=== PATIENT | female | born 1980 ===

== ENCOUNTER 2018-01-29 21:33 | Inpatient (IN) | payer MEDICAID, SELFPAY ==
[2018-01-29 22:15] VITALS: BMI 22.6
--- NOTE | 2018-01-29 23:29 | OBADHP ---
Datetime: 01/29/2018 23:28 FHR - Baseline A Provider: 140 NICHD Variability Prov Fetus A: Moderate 6-25bpm Dilatation, Provider: 1-2 Effacement, Provider: thick Station, Provider: long Datetime: 01/29/2018 22:17 Admit Comment, IP Provider: CC: IOL for AMA HPI: 37 YO @ 39.5wks IUP presents to L_D for IOL. Pt states the has been going w ell thus far, no complications. Endorsing good FM, no VB, no LOF and occasional ctx. MD: [facility] OBHx: 2x NVD (2010 and 2012) 1 SAB PMH: denies SurgH: L ovarian cyst removal 2014 FH: denies SH: denies smoking, ETOH, illict drug use Allergies: NKDA Meds: PNV PE: Gen: NAD Cardio: S1S2 no additional heart sounds Resp: clear breath sounds b/l Abdomen: gravid, NT, BS+ Neuro: AAO x 3 Ext: NT, no edema noted FM: 140, Catagory I Bedside U/S: Vertex Cervx: 1-2/thick/long A/P: 37 YO @ 39.5wks IUP is admitted for IOL. GBS neg, HIV neg, RPR neg, Heb B neg, rubell a immune. -Admit pt to L_D -start IOL protocol -blood work -continue FM Margarita Ornelas, PGY I OB Hospitalist note: Pt seen. She was sent by Dr Delilah Miller ([facility]) for IO L Agree with PGY1 note ROBB Discussed IOL, pain management, labor/delivery and Pelvic Type - PN: Adequate Extremities - PN: Normal Abdomen - PN: Normal Back - PN: Not Done Breast - PN: Normal Lungs - PN: Normal Heart - PN: Normal Thyroid - PN: Not Done Neurologic - PN: Normal HEENT - PN: Normal General - PN: Normal Presentation-Admit: Vertex Membranes, Provider: Intact IP Hx Assessment: The History has been Reviewed and is Current Vital Signs Provider: Reviewed; Within Normal Limits IP Chief Complaint: Scheduled induction of labor NICHD Accel Fetus A IP Provider: [id number] FHR Category Provider Fetus A: Category I NICHD Decel Fetus A IP Provider: None Genitourinary Exam: Normal DTRs - PN: Not Done IP Adm Impression: Term, intrauterine ; No Active Labor; Intact Membranes IP Admit Plan: Admit to unit; Initiate labor protocol; Initiate labor induction protocol
[2018-01-29 23:48] LABS: BASO % 0.3 % (0.0-2.0); EOS % 0.2 % (0.0-4.0); HEMOGLOBIN 10.5 g/dL (12.0-16.0); LYMPH # 1.5 K/uL (1.0-4.3); LYMPH % 20.3 % (20.0-40.0); MEAN CELL VOLUME 88.7 fl (81.0-99.0); MEAN CORPUSCULAR HGB CONC 32.7 g/dL (33.0-37.0); MEAN PLATELET VOLUME 9.9 fl (7.2-11.7); MONO # 0.6 K/uL (0.0-0.8); MONO % 7.9 % (0.0-10.0); NEUT # 5.2 K/uL (1.8-7.0); NEUT % 71.3 % (50.0-75.0); RBC 3.62 Mil/uL (3.80-5.20); RED CELL DISTRIBUTION WIDTH 15.1 % (11.5-14.5); WHITE BLOOD COUNT 7.3 K/uL (4.8-10.8)
[2018-01-30] MEDS: Lactated Ringer's 1,000 ML IV SCH ×5 (00:30→08:59)
[2018-01-30] MEDS ORDERED: Fentanyl/Bupivacaine HCl 250 ML EPI ONE (00:55)
[2018-01-30] MEDS ORDERED: Oxytocin 30 units/LR 500ML 30 U/500 ML BAG IV ONE ×2 (04:27→09:03)
[2018-01-30] MEDS ORDERED: Lidocaine 2% Inj (20ml) ONE (07:28)
--- NOTE | 2018-01-30 07:35 | OBPN ---
Datetime: 01/30/2018 06:40 IP Progress Plan Other: Pitocin at 1miu/h IP Progress Impression Other: Second stage of labor IP Progress Impression: Normal progression of labor IP Informed Consent Obtain: Vaginal Delivery; Risks, Benefits and Alternatives Discussed IP Progress Plan: Continue present management; Augmentation Membranes, Provider: Ruptured FHR - Baseline A Provider: 130 Presentation-Admit: Vertex NICHD Accel Fetus A IP Provider: [id number] FHR Category Provider Fetus A: Category I NICHD Variability Prov Fetus A: Moderate 6-25bpm Dilatation, Provider: 10 Effacement, Provider: 100 Station, Provider: 0 NICHD Decel Fetus A IP Provider: None Datetime: 01/30/2018 04:29 IP Progress Note Comment: 37 YO @ 39.5wks IUP is admitted for IOL. Pt has irregular ctx pattern on monitor. Cervx: 2 Will start pitocin continue to monitor labor progression. Margarita Ornelas, PGY I Case was dicussed with PGY1 - agree with note MAHNDO Datetime: 01/30/2018 00:20 IP Procedures Other: Cervidil removed Datetime: 01/29/2018 23:28 Vital Signs Provider: Reviewed; Within Normal Limits
[2018-01-30] MEDS ORDERED: Oxycodone/Acetaminophen 5/325 mg Tab PO PRN ×4 (08:24→12:52)
[2018-01-30] MEDS ORDERED: Benzocaine/Menthol SPRAY TOP PRN (18:50)
[2018-01-31 07:18] LABS: BASO % 0.3 % (0.0-2.0); EOS % 0.5 % (0.0-4.0); HEMOGLOBIN 7.7 g/dL (12.0-16.0); LYMPH # 1.8 K/uL (1.0-4.3); LYMPH % 21.2 % (20.0-40.0); MEAN CELL VOLUME 88.9 fl (81.0-99.0); MEAN CORPUSCULAR HEMOGLOBIN 29.6 pg (27.0-31.0); MEAN CORPUSCULAR HGB CONC 33.2 g/dL (33.0-37.0); MEAN PLATELET VOLUME 9.2 fl (7.2-11.7); MONO # 0.6 K/uL (0.0-0.8); MONO % 6.9 % (0.0-10.0); NEUT # 5.9 K/uL (1.8-7.0); NEUT % 71.1 % (50.0-75.0); RBC 2.62 Mil/uL (3.80-5.20); RED CELL DISTRIBUTION WIDTH 15.4 % (11.5-14.5); WHITE BLOOD COUNT 8.3 K/uL (4.8-10.8)
--- NOTE | 2018-01-31 14:59 | OBPPN ---
Datetime: 01/31/2018 05:46 PP Pain Prov: Within normal limits PP Nausea Prov: Denies PP Flatus Prov: Yes PP BM Prov: Yes PP Breasts Prov: Normal PP Heart Prov: Normal PP Lungs Prov: Normal PP Abdomen/Uterus Prov: Normal PP Lochia Prov: Normal PP Vulva/Perineum Prov: Normal PP CVA Tenderness Prov: Not Done PP Extremities Prov: Normal PP C/S Incision Prov: Not Applicable PP Progress Prov: Not Applicable PP Impression Prov: Normal progression PP Plan Prov: Continue present management PP Progress Note Prov: S: 37 YO PPD1, s/p NVD. Pt is seen and examined by bedside this AM. No a cute overnight events. Pt is endorsing mild abdominal pain, but well controlled with pain meds. Has a mbulated to the bathroom without assistance. Bleeding has improved since delivery, like menses now. T olerating PO diet. + BM/+flatus. Denies chest pain, dyspnea, n/v, fever/chills, diarrhea, nausea/vomi ting, and calf pain. Does not desire circumcision for baby. O: VS: wnl, afebrile GEN: Awake, alert and baby by bedside HEENT: EOMI, moist mucosa. LUNGS: CTA B/L, no wheezing, rhonci, or rales CVS: RRR, S1, S2 no murmurs ABD: ND, +BS, soft abdomen, firm fundus, below umbilicus. EXT: No edema, neg calf tenderness NEURO/PSYCHI: AAOx3, no grossly focal deficit, preserved affect and mood. Assessment/Plan: 37 YO PPD1, s/p NVD on 01/30/18, gave to a baby boy. Pt remains afebril e, tolerating pain with medication, good PO intake and urinating without any difficulties. Doing well on PPD1. -C/w regular diet as tolerated. -OOB with caution SCDs for DVT prophylaxis -Ibuprofen 600 mg for pain prn -C/w Colace 100mg PO BID -Encourage and early ambulation. Margarita Ceci, PGY I Vital Signs Provider PP: Reviewed; Within Normal Limits
--- NOTE | 2018-02-01 08:17 | OBDCSUM ---
Datetime: 02/01/2018 06:21 Discharged to, Provider: Home Follow up at, Provider: [facility] Disch Instr Activity: Normal activity; May be up to bathroom; May be up for meals; May Shower Disch Instr Diet: Regular Discharge Instructions, Provider: Routine instructions given Discharge Diagnosis, Provider: Term Delivered Discharge Time: 02/01/2018 06:21 Follow up in weeks, Provider: 6wks Contraception discussed, Prov: Yes Disch Activity Restrictions: No exercising; No lifting; No driving; Minimize stair-climbing; No sexu al activity; Nothing in vagina - [place], tampons, douche Discharge Comment, Provider: 37 YO PPD1, s/p NVD on 01/30/18; gave to a baby boy @39.5 wks IUP @ 8:00AM. of 9/9 and weight of 2740g. No complications during the post- period. Pt i s tolerating PO diet, pain is well controlled, and ambulating without difficulties. PPD2. Discharge Instructions: 1.Encourage 2.PNV 1 tab po daily 3.Ibuprofen for mild-mod pain and colace for constipation. Rx for Iron due to low hb/hct. 4.ER precautions: If excessive bleeding or fever without relief from medication, go to ED 5.F/U in [facility] on 03/11/18 @ 9 AM for her PP visit and follow up in 2-3 days for baby. Margarita Ornelas, PGY I The patient was seen with the resident and I agree with the note Contraception after Delivery: Undecided
--- NOTE | 2018-02-01 08:17 | OBPPN ---
Datetime: 02/01/2018 06:19 PP Pain Prov: Within normal limits PP Nausea Prov: Denies PP Flatus Prov: Yes PP BM Prov: Yes PP Breasts Prov: Normal PP Heart Prov: Normal PP Lungs Prov: Normal PP Abdomen/Uterus Prov: Normal PP Lochia Prov: Normal PP Vulva/Perineum Prov: Normal PP CVA Tenderness Prov: Not Done PP Extremities Prov: Normal PP C/S Incision Prov: Not Applicable PP Progress Prov: Normal PP Impression Prov: Normal progression PP Plan Prov: Continue present management; Discharge PP Progress Note Prov: S: 37 YO PPD2, s/p NVD. Pt is seen and examined by bedside this AM. No a cute overnight events. Pt is endorsing occasional cramping pain, but does not need any pain meds. Amb ulating without any difficulties. Minimal vaginal bleeding, like light menses. Tolerating PO diet. +B M/+flatus. Denies chest pain, dyspnea, n/v, fever/chills, diarrhea, nausea/vomiting, and calf pain. O: VS: wnl, afebrile GEN: Awake, alert and baby girl by bedside. Sleepy HEENT: EOMI, moist mucosa. LUNGS: CTA B/L, no wheezing, rhonci, or rales CVS: RRR, S1, S2 no murmurs ABD: ND, +BS, soft abdomen, firm fundus, below umbilicus. EXT: No edema, neg calf tenderness NEURO/PSYCHI: AAOx3, no grossly focal deficit, preserved affect and mood. Assessment/Plan: 37 YO PPD2, s/p NVD on 01/30/18; gave to a baby boy. Pt remains afebril e, tolerating pain with medication, good PO intake and urinating without any difficulties. Doing well on PPD2. -C/w regular diet as tolerated. -OOB with caution SCDs for DVT prophylaxis -Ibuprofen 600 mg for pain prn -C/w Colace 100mg PO BID -Encourage and early ambulation. -will d/c pt home today -pp follow up in 6 weeks for PP (03/11/18) visit and follow up for baby in 2-3 days Margarita Ornelas, PGY I Patient seen with the resident I agree with the notes Vital Signs Provider PP: Reviewed; Within Normal Limits
[2018-02-01 18:17] VITALS: BP 108/69; PULSE 71; RESP 20; TEMP 98.1; O2SAT 100
== END 2018-02-01 14:10 | disposition home or self-care (01) | DRG 373 ==
LOC: H.L&D 22:15 → H.OB/GYN 01-30 11:30
PROVIDERS: ADMIT Obstetrics & Gynecology; ATTEND Obstetrics & Gynecology
PROC: 4A1HXCZ Monitoring of Products of Conception, Cardiac Rate, External Approach (ICD-10-PCS; 2018-01-29)
PROC: 0KQM0ZZ Repair Perineum Muscle, Open Approach (ICD-10-PCS; principal; 2018-01-30)
PROC: 10E0XZZ Delivery of Products of Conception, External Approach (ICD-10-PCS; 2018-01-30)
DX: O70.1 Second degree perineal laceration during delivery (principal); Z3A.39 39 weeks gestation of pregnancy; Z37.0 Single live birth